=== PATIENT | male | born 2000 | race Two or more races ===

== ENCOUNTER 2020-03-10 10:15 | Emergency (ER) | payer MEDICAID, OTHER ==
[~2020-03-10] VITALS: Ht 165.1 cm; Wt 54.9 kg
[2020-03-10 10:23] VITALS: BP 132/87
[2020-03-10] MEDS ORDERED: diphenhdrAMINE HCL 50 MG/1 ML VL IM ONE (11:15)
== END 2020-03-10 11:54 | disposition home or self-care (01) ==
LOC: ER 10:15
DX: F41.1 Generalized anxiety disorder (principal)
CPT/HCPCS: 96372; 99283; J1200